=== PATIENT | female | born 1945 | race African-American/Black ===

== ENCOUNTER 2020-02-13 11:54 | Emergency (ER) | payer MEDICARE ==
[~2020-02-13] VITALS: Ht 165.1 cm; Wt 52.0 kg
[~2020-02-13 11:54] MED LIST: CIPR500T94 PO; HYDR-3164 PO; ONDA4TAB7 PO
--- NOTE | 2020-02-13 12:39 | PHYS DOC ---
Past Medical History Past Medical History: Ectopic , Unknown, Other Additional Past Medical Histor: pt is poor historian. only known hx is bursitis Past Surgical History: Other Additional Past Surgical Histo: tubal , hernia, "can't remember" Smoking Status: Never Smoker Alcohol Use: Heavy Drug Use: None General Adult EDM: Chief Complaint: PAIN ON URINATION HPI: HPI: Patient is a 74 year old female who presents with 2 days of burning with urination and that is dull aching that comes and goes. Patient states that yesterday she was vomiting and had diarrhea. Patient's states that she has not vomited today. She states she did have a bowel movement this morning. Denies any pain at this time. Patient states she is having urinary frequency. Patient states she has a history of bursitis, tubal , borderline diabetic when she is , hernia, . Review of Systems: Review of Systems: Constitutional: Denies fever or chills. [] Eyes: Denies change in visual acuity. [] HENT: Denies nasal congestion or sore throat. [] Respiratory: Denies cough or shortness of breath. [] Cardiovascular: Denies chest pain or edema. [] GI: + Lower intermittent abdominal pain, +nausea, +vomiting, + lack of appetite, denies bloody stools. + diarrhea. [] : + dysuria. [] Musculoskeletal: Denies back pain or joint pain. [] Integument: Denies rash. [] Neurologic: Denies headache, focal weakness or sensory changes. [] Endocrine: Denies polyuria or polydipsia. [] Lymphatic: Denies swollen glands. [] Psychiatric: Denies depression or anxiety. [] Heart Score: Risk Factors: Risk Factors: DM, Current or recent (<one month) smoker, HTN, HLP, family history of CAD, obesity. Risk Scores: Score 0 - 3: 2.5% MACE over next 6 weeks - Discharge Home Score 4 - 6: 20.3% MACE over next 6 weeks - Admit for Clinical Observation Score 7 - 10: 72.7% MACE over next 6 weeks - Early Invasive Strategies Allergies: Allergies: Allergies Coded Allergies Type Severity Reaction Last Updated Verified codeine Allergy Unknown 06/26/14 No lidocaine Allergy Unknown 06/26/14 No procaine Allergy Unknown 06/26/14 No Physical Exam: PE: Constitutional: Well developed, well nourished, no acute distress, non-toxic appearance. [] HENT: Normocephalic, atraumatic, bilateral external ears normal, oropharynx moist, no oral exudates, nose normal. [] Eyes: PERRLA, EOMI, conjunctiva normal, no discharge. [] Neck: Normal range of motion, no tenderness, supple, no stridor. [] Cardiovascular:Heart rate regular rhythm, no murmur [] Lungs & Thorax: Bilateral breath sounds clear to auscultation [] Abdomen: Bowel sounds normal, soft, no tenderness, no masses, no pulsatile masses. [] Skin: Warm, dry, no erythema, no rash. [] Back: No tenderness, no CVA tenderness. [] Extremities: No tenderness, no cyanosis, no clubbing, ROM intact, no edema. [] Neurologic: Alert and oriented X 3, normal motor function, normal sensory function, no focal deficits noted. [] Psychologic: Affect normal, judgement normal, mood normal. Normal physical exam [] EKG: EK AND READ BY DR JOHNSTON SINUS RHYTHM AND NO STEMI Radiology/Procedures: Radiology/Procedures: [] Course & Med Decision Making: Course & Med Decision Making Pertinent Labs and Imaging studies reviewed. (See chart for details) See HPI. Ambulatory with a steady gait. Speaks in full complete sentences. Skin pink warm dry. Vital signs within normal limits. Abdomen is soft and nontender. No CVA tenderness. Patient's urinalysis does not show infection if she is having symptoms. Patient is refusing CT scan imaging. I offered her low-dose ketamine to help relax her and she is refusing all of it. She states she does not do well with medication she does not want the medication. I explained to the patient that something could be going on that I cannot properly diagnose such as a medical emergency and this leaves the possibility for disability or . She states her understanding of this and still refuses. I have ordered a acute abdominal series instead. 1600: Nurse tells me that the patient signed out AMA and stated that she wanted no further testing. She stated it was " too cold in here and she wants to go home". Patient was offered a blanket but patient refused and states she just wants to go home. Blood work was unremarkable. Urinalysis showed slight dehydration but she was given a liter of normal saline in the ED. Urinalysis did not show infection. Patient did state upon arrival that she was able to keep food and fluid down today before coming. Patient has not vomited here today. Patient is stable and steady on her feet. She is alert and oriented X4. [] Dragon Disclaimer: Dragon Disclaimer: This electronic medical record was generated, in whole or in part, using a voice recognition dictation system. Departure Departure Impression: Primary Impression: Left against medical advice Additional Impressions: Urinary symptom or sign Vomiting and diarrhea Disposition: 07 AMA/ELOPED/LWBS Condition: STABLE Referrals: NON,STAFF (PCP) KENZIE CONNER APRN Feb 13, 2020 12:39
[2020-02-13] MEDS ORDERED: IV NORMAL SALINE 1000ML BAG 1,000 ML IV ONE (12:45)
[2020-02-13 13:13] LABS: BASO % 1 % (0-3); EOS % 1 % (0-3); HEMATOCRIT 34.4 % (36.0-47.0); LYMPH # 1.1 x10^3/uL (1.0-4.8); LYMPH % 29 % (24-48); MEAN CORPUSCULAR HEMOGLOBIN 36 pg (25-35); MEAN CORPUSCULAR HGB CONC 35 g/dL (31-37); MEAN CORPUSCULAR VOLUME 103 fL (79-100); MONO # 0.3 x10^3/uL (0.0-1.1); MONO % 9 % (0-9); NEUT # 2.1 x10^3/uL (1.8-7.7); NEUT % 59 % (31-73); PLATELET COUNT 169 x10^3/uL (140-400); RED BLOOD COUNT 3.35 x10^6/uL (3.50-5.40); RED CELL DISTRIBUTION WIDTH 14.5 % (11.5-14.5); WHITE BLOOD COUNT 3.6 x10^3/uL (4.0-11.0)
[2020-02-13 13:39] LABS: % EOS 1 % (0-5); % LYMPHS 30 % (24-48); % METAS 1 % (0-0); % MONOS 9 % (0-10); % SEGS 59 % (35-66)
[2020-02-13 13:40] LABS: PLT ESTIMATE ADEQUATE (ADEQUATE)
[2020-02-13 14:12] LABS: CALCIUM 8.4 mg/dL (8.5-10.1); CREATININE 0.6 mg/dL (0.6-1.0); GFR 118.2; POTASSIUM 3.9 mmol/L (3.5-5.1)
[2020-02-13 14:18] LABS: ALBUMIN 3.4 g/dL (3.4-5.0); ALBUMIN/GLOBULIN RATIO 1.1 (1.0-1.7); TOTAL BILIRUBIN 3.3 mg/dL (0.2-1.0); TOTAL PROTEIN 6.6 g/dL (6.4-8.2)
[2020-02-13 14:29] LABS: BILIRUBIN,URINE NEGATIVE (NEG); CLARITY,URINE CLEAR; COLOR,URINE YELLOW; NITRITE,URINE NEGATIVE (NEG); PH,URINE 7.5 (<5.0-8.0); PROTEIN,URINE NEGATIVE (NEG-TRACE)
[2020-02-13 14:33] LABS: BACTERIA,URINE 0 /HPF (0-FEW); RBC,URINE RARE /HPF (0-2); WBC,URINE 0 /HPF (0-4)
[2020-02-13] MEDS ORDERED: CONTRAST GIVEN. MC PRN (15:00)
[2020-02-13] MEDS ORDERED: IOHEXOL 300 MG/ML 100ML VIAL. IV ONE (15:00)
[2020-02-13] MEDS ORDERED: KETAMINE HCL IN NACL, ISO-OSM 50 MG/5 ML SYRINGE IV ONE (15:15)
[2020-02-13 15:30] VITALS: BP 187/94
--- NOTE | 2020-02-15 07:38 | EKG ---
[facility] [address] [place] [address] Test Date: 2020-02-13 Test Time: 12:48:20 Pat Name: PORSHA SUN Department: Room: Gender: F Molding Technician: : 1945 Requested By: KENZIE CONNER Order Number: [id number] Reading MD: Ciro New Measurements Intervals [place] Rate: 78 P: 64 MN: 154 QRS: 29 QRSD: 92 T: 54 QT: 400 QTc: 460 Interpretive Statements SINUS RHYTHM Electronically Signed On 02-16-2020 10:48:18 REGISTERED DENTAL ASSISTANT by Ciro New
== END 2020-02-13 16:00 | disposition left against medical advice (07) ==
LOC: ER 11:54
DX: R11.2 Nausea with vomiting, unspecified (principal); R19.7 Diarrhea, unspecified; R30.9 Painful micturition, unspecified; E86.0 Dehydration; F10.10 Alcohol abuse, uncomplicated; Z98.890 Other specified postprocedural states; Z88.5 Allergy status to narcotic agent; Z88.8 Allergy status to other drugs, medicaments and biological substances
CPT/HCPCS: 36415; 80053; 81001; 83690; 84484; 85007; 85025; 93005; 96360; 99284; J7030

== ENCOUNTER 2020-06-17 11:05 | Emergency (ER) | payer MEDICARE, OTHER ==
[~2020-06-17] VITALS: Ht 162.6 cm; Wt 52.0 kg
[2020-06-17 11:05] VITALS: BP 154/44
[2020-06-17 11:52] LABS: BASO % 1 % (0-3); EOS % 1 % (0-3); HEMATOCRIT 31.8 % (36.0-47.0); HEMOGLOBIN 10.5 g/dL (12.0-15.5); LYMPH # 1.5 x10^3/uL (1.0-4.8); LYMPH % 43 % (24-48); MEAN CORPUSCULAR HEMOGLOBIN 35 pg (25-35); MEAN CORPUSCULAR HGB CONC 33 g/dL (31-37); MEAN CORPUSCULAR VOLUME 105 fL (79-100); MONO # 0.3 x10^3/uL (0.0-1.1); MONO % 9 % (0-9); NEUT # 1.6 x10^3/uL (1.8-7.7); NEUT % 47 % (31-73); PLATELET COUNT 142 x10^3/uL (140-400); RED BLOOD COUNT 3.03 x10^6/uL (3.50-5.40); RED CELL DISTRIBUTION WIDTH 14.4 % (11.5-14.5); WHITE BLOOD COUNT 3.5 x10^3/uL (4.0-11.0)
[2020-06-17 12:02] LABS: CALCIUM 8.1 mg/dL (8.5-10.1); CREATININE 0.5 mg/dL (0.6-1.0); GFR 145.5; POTASSIUM 3.5 mmol/L (3.5-5.1)
[2020-06-17 12:06] LABS: ALBUMIN/GLOBULIN RATIO 0.9 (1.0-1.7); MAGNESIUM 1.7 mg/dL (1.8-2.4); TOTAL BILIRUBIN 0.5 mg/dL (0.2-1.0); TOTAL PROTEIN 6.3 g/dL (6.4-8.2)
--- NOTE | 2020-06-17 12:12 | EKG ---
[facility] [address] [place] [address] Test Date: 2020-06-17 Test Time: 11:30:56 Pat Name: PORSHA SUN Department: Room: Gender: F Sanitation Laborer: : 1945 Requested By: TRESSA BOWDEN Order Number: [id number] Reading MD: Measurements Intervals [place] Rate: 68 P: 68 VA: 172 QRS: 31 QRSD: 84 T: 40 QT: 396 QTc: 426 Interpretive Statements SINUS RHYTHM R-S TRANSITION ZONE IN V LEADS DISPLACED TO THE RIGHT INCOMPLETE RIGHT BUNDLE BRANCH BLOCK OTHERWISE NORMAL ECG RI6.02 No previous ECG available for comparison
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
== END 2020-06-17 12:28 | disposition left against medical advice (07) ==
LOC: ER 11:05
DX: S00.83XA Contusion of other part of head, initial encounter (principal); M54.2 Cervicalgia; R47.81 Slurred speech; I45.10 Unspecified right bundle-branch block; R07.89 Other chest pain; F10.20 Alcohol dependence, uncomplicated; Y90.9 Presence of alcohol in blood, level not specified; Z88.4 Allergy status to anesthetic agent; Z88.5 Allergy status to narcotic agent; V49.49XA Driver injured in collision with other motor vehicles in traffic accident, initial encounter; Y92.481 Parking lot as the place of occurrence of the external cause; Y93.89 Activity, other specified; Y99.8 Other external cause status
CPT/HCPCS: 36415; 80053; 83735; 84484; 85025; 93005; 99284; G0480

== ENCOUNTER 2021-02-12 04:24 | Emergency (ER) | payer OTHER ==
[~2021-02-12] VITALS: Ht 162.6 cm; Wt 54.5 kg
[2021-02-12] MEDS ORDERED: IV NORMAL SALINE 1000ML BAG 1,000 ML IV ONE (05:00)
--- NOTE | 2021-02-12 05:14 | PHYS DOC ---
Past Medical History Past Medical History: Ectopic , Unknown, Other Additional Past Medical Histor: pt is poor historian. only known hx is bursitis (ABIELCESAR Benitez ) Past Surgical History: Other Additional Past Surgical Histo: hernia repair (ABIELCESAR Benitez ) Smoking Status: Never Smoker Alcohol Use: Rarely Drug Use: None (ABIELCESAR Benitez DO) General Adult EDM: Chief Complaint: NAUSEA/VOMITING/DIARRHEA HPI: HPI: Patient is a 75 year old female presents with the chief complaint of nausea vomiting diarrhea x 1 days. Associated symptoms include runny nose cough sore throat abdominal cramping and dysuria. Patient denies shortness of breath. She is not vaccinated. (ABIELCESAR Benitez DO) Review of Systems: Review of Systems: Review of systems: Constitutional symptoms- No fever, no chills. Eyes- No Discharge, No Visual Loss Respiratory symptoms- No shortness of breath, No wheezing, No Dyspnea on Exertion positive cough Cardiovascular Systems; No chest pain, No Palpitations, No syncope Gastrointestinal symptoms: positive abdominal pain, Positive nausea, Positive vomiting Positive diarrhea. Genitourinary symptoms: Positive dysuria. Musculoskeletal symptoms: No back pain No extremity pain. NEUROLOGICAL Symptoms: No headache, no generalized weakness; No focal Weakness Skin: No rash. (ABIELCESAR Benitez DO) Heart Score: C/O Chest Pain: N/A Risk Factors: Risk Factors: DM, Current or recent (<one month) smoker, HTN, HLP, family history of CAD, obesity. Risk Scores: Score 0 - 3: 2.5% MACE over next 6 weeks - Discharge Home Score 4 - 6: 20.3% MACE over next 6 weeks - Admit for Clinical Observation Score 7 - 10: 72.7% MACE over next 6 weeks - Early Invasive Strategies (ABIELCESAR Benitez ) Current Medications: Current Medications Medications (Trade) Dose Ordered Sig/Mathew Start Time Stop Time Status Last Admin Dose Admin Sodium Chloride 1,000 ml @ 1,000 mls/hr 1X ONCE 02/12/21 05:00 02/12/21 05:59 (ABIELCESAR Benitez ) Allergies: Allergies: Allergies Coded Allergies Type Severity Reaction Last Updated Verified codeine Allergy Unknown 06/26/14 No lidocaine Allergy Unknown 06/26/14 No procaine Allergy Unknown 06/26/14 No (ABIELCESAR Eli VAUGHN) Physical Exam: PE: General: alert, no acute distress. Skin: warm, dry and intact, no erythema, no rash. HENT: bilateral external ears normal, oropharynx moist, nose normal. Head:: Normocephalic, atraumatic. Neck: Trachea midline. Eyes: EOMI, Normal conjunctiva, No drainage CARDIOVASCULAR: Regular rate and rhythm RESPIRATORY: No respiratory distress Back: Full range of motion. MUSCULOSKELETAL: Full range of motion of bilateral upper and lower extremities. GASTROINTESTINAL: Abdomen soft without rebound or guarding. NEUROLOGICAL: Alert and noted to person, place and time. No neurological deficits observed Psychiatric: Cooperative. Normal judgment (CESAR RAJAN DO) PE: Constitutional: Elderly, well nourished, no acute distress, non-toxic appearance HENT: Normocephalic, atraumatic Eyes: Conjunctiva normal, no discharge Neck: Normal range of motion, supple Lungs & Thorax: No respiratory distress, equal chest rise and fall Abdomen: Soft, no tenderness, no guarding/rebound tenderness/distention Skin: Warm, dry, no erythema, no rash Back: No tenderness, no CVA tenderness Extremities: No tenderness, ROM intact, no edema Neurologic: Alert and oriented X 3, no focal deficits noted Psychologic: Affect normal, judgment normal (LEXIE IBARRA DO) Current Patient Data: Vital Signs: Vital Signs Date Time Temp Pulse Resp B/P (MAP) Pulse Ox O2 Delivery O2 Flow Rate FiO2 02/12/21 04:41 99.1 85 16 187/105 (132) 99 Room Air 99.1 (CESAR RAJAN I ) EKG: EKG: [] (CESAR RAJAN I ) Radiology/Procedures: Radiology/Procedures: [] (ABIELCESAR I ) Radiology/Procedures: PROCEDURE: CT ABD PELV W/ IV CONTRST ONLY Exam: CT abdomen/pelvis with intravenous contrast Indication: Abdominal pain, nausea vomiting diarrhea Comparison: None Technique: Helical CT imaging performed of the abdomen and pelvis after the intravenous administration of 75 mL Omnipaque 300 contrast. Sagittal and coronal reformats were obtained. One or more of the following individualized dose reduction techniques were utilized for this examination: 1. Automated exposure control 2. Adjustment of the mA and/or kV according to patient size 3. Use of iterative reconstruction technique. Findings: Lower chest: Lung bases are clear. The heart is normal in size. Liver: There is a 2 cm probable cyst in the left hepatic lobe. Mild hepatic steatosis. Gallbladder/Biliary Tree: Cholelithiasis. Bile ducts are normal. Pancreas: Normal. Spleen: Normal. Adrenal Glands: Normal. Kidneys/Ureters/Bladder: Kidneys are normal in size and enhance symmetrically. There is a 2 cm cyst in the right kidney. Cyst in the left kidney measuring up to 1 cm. No hydronephrosis. Ureters are unremarkable. Bladder is normal. Reproductive Organs: Uterus is anteverted. There is a 4.4 x 3.5 cm calcified mass in the right adnexa. Stomach, small bowel, and colon: Stomach is normal. There is no small bowel obstruction. The appendix is normal. Mild sigmoid diverticulosis. Vasculature: No aortic aneurysm. Mild calcified aortoiliac atherosclerosis. Lymph Nodes: There is no lymphadenopathy. Peritoneum and retroperitoneum: No free fluid or free air. Bones: No acute osseous abnormality. 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 Mild degenerative disc disease in the lumbar spine. Impression: 1. Cholelithiasis. 2. Hepatic steatosis. 2 cm hepatic cyst. 3. 4.4 cm calcified mass in the right adnexa. This could be a exophytic fibroid or calcified ovarian mass. Ultrasound could be obtained to further evaluate. 4. Mild sigmoid diverticulosis. 5. Bilateral renal cysts. Electronically signed by: Linh Herrera MD (02/12/2021 7:05 AM) [facility] (LEXIE IBARRA DO) Course & Med Decision Making: Course & Med Decision Making Pertinent Labs and Imaging studies reviewed. (See chart for details) [] Patient was evaluated for chief complaint. Work-up consisted of laboratory analysis radiologic imaging. Treatment included IV fluids and Zofran. Lab and radiologic imaging pending at shift change. Patient signed out to Dr. Ibarra. Disposition work-up and reevaluation. (CESAR RAJAN DO) Course & Med Decision Making 0600- Sign out received from Dr. Rajan for patient with report of N/V/D concerning for possible viral illness. Laboratory and CT imaging pending at time of sign out. Symptomatic treatment provided including IVF hydration. Rapid COVID and Influenza testing negative. Other labs unremarkable. CT imaging without acute process. Notation of calcified adenexal mass noted. A copy of CT imaging given to patient to provided to her PCP for further evaluation. Patient seen and evaluated by myself. Patient reports interval improvement of symptoms, but did report some headache. Tylenol provided. Patient also requests additional nausea medication to be provided in ED to prevent further nausea and vomiting until she can roll picker her prescription for Zofran ODT. Patient does have some elevated blood pressure. Patient reports "white coat" syndrome. Patient advised to therefore follow up with her PCP regarding further evaluation and possible treatment. Patient stable for discharge with outpatient follow-up with PCP. Discussed findings and plan with patient, who acknowledges understanding and agreement. (LEXIE IBARRA DO) [place] Disclaimer: Dragon Disclaimer: This electronic medical record was generated, in whole or in part, using a voice recognition dictation system. (CESAR RAJAN DO) Departure Departure Impression: Primary Impression: Abdominal pain Additional Impressions: Vomiting and diarrhea Abnormal finding on radiology exam Suspected 2019 novel coronavirus infection Disposition: HOME / SELF CARE / HOMELESS Condition: STABLE Referrals: MABLE HEMPHILL MD (PCP) Patient Instructions: Abdominal Pain (Nonspecific), Diarrhea, [id number], Diet for Diarrhea, Adult, Incidental Abnormal Radiological Finding, Nausea and Vomiting, [id number] Additional Instructions: Please provided copy of CT results to your family physician for further evaluation. You have been tested for or diagnosed with COVID-19. It is an infection caused by a new type of coronavirus. COVID-19 will cause cold-like or mild flu symptoms in most. It can cause more severe symptoms like problems breathing in some. There is no treatment for COVID-19. The body will clear the infection over time. Self-care will help to ease discomfort. Steps to Take: Self-Care Rest as needed. Healthy habits may help you feel better. Steps include: Choose healthy foods including fruits and vegetables. Drink water throughout the day. Get plenty of sleep each night. If you smoke, try to quit. It may ease breathing. Avoid alcohol. Keep Others Healthy The virus can spread to others. Droplets are released every time you sneeze or cough. The droplets can get into the mouth, nose, or eyes of people near you and lead to infection. To lower the chances of spreading COVID-19 to others: Stay at home until your doctor has said it is safe to leave. If you tested positive this will mean staying isolated until both of the following are true: At least 7 days have passed since the start of illness. You are free of fever for at least 72 hours without the use of medicine. During this time: - Avoid public areas, events, or transportation. Do not return to work or school until your doctor has said it is safe to do so. - Call ahead if you need to go to a medical center. Let them know you may have COVID-19. It will help them guide you where to go. They may also ask you to wear a facemask when you come to the office. - If you call for emergency medical services, let them know you may have COVID- 19. While at home: - Try to avoid close contact with others. Stay about 6 feet away. - If possible, spend most of your time in a separate room from others. - Use a face mask if you will be in close contact with others such as sharing a room or vehicle. - Have someone wipe down common surfaces in the home. Use household gaming manager every day on areas like doorknobs, counters, or sinks. - Cough or sneeze into a tissue. Throw the tissue away right after use. If a tissue is not available, cough or sneeze into your elbow. - Wash your hands often. Wash them after sneezing or coughing. Use soap and water and wash for at least 20 seconds. Alcohol based hand airplane cleaner can be used if soap and water is not available. - Do not prepare food for others. Avoid sharing personal items like forks, spoons, or toothbrushes. - Avoid close contact with pets while you are sick. There is no evidence of the virus passing to pets. This is a safety step until more is known about this virus. Isolation can be frustrating. Social interaction can help. Keep in touch with friends and family through phone and tech options. You can still interact with others in your home, just keep a safe distance of about 6 feet. Follow-up: Your doctors office will check in with you to see if there are any changes in your health. You may be asked to keep track of symptoms to share with them. They will also let you know when you are clear to be in public again. Problems to Look Out For: Contact your doctor if your recovery is not going as you expect. Get emergency care if you have problems such as: - Trouble breathing - Nonstop chest pain or pressure - Changes in awareness, confusion, or problems waking - Lips or face have bluish color - Worsening of symptoms If you think you have an emergency, call for emergency medical services right away. As taken from [facility] Ondansetron (ONDANSETRON ODT) 4 Mg Tab.rapdis 1 TAB PO PRN Q6-8HRS PRN for NAUSEA, #16 TAB Prov: LEXIE IBARRA DO 02/12/21 CESAR RAJAN I DO Feb 12, 2021 05:14 LEXIE IBARRA DO Feb 12, 2021 07:33
[2021-02-12 05:30] LABS: BILIRUBIN,URINE SMALL (NEG); CLARITY,URINE CLEAR; COLOR,URINE AMBER; NITRITE,URINE NEGATIVE (NEG); PH,URINE 6.5 (<5.0-8.0); PROTEIN,URINE NEGATIVE (NEG-TRACE)
[2021-02-12] MEDS ORDERED: ONDANSETRON PF 4 MG/2 ML VIAL. ONE (05:33)
[2021-02-12 05:44] LABS: BACTERIA,URINE 0 /HPF (0-FEW); RBC,URINE 0 /HPF (0-2)
[2021-02-12 05:45] LABS: AMORPHOUS SEDIMENT,UR PRESENT /HPF
[2021-02-12] MEDS ORDERED: ONDANSETRON PF 4 MG/2 ML VIAL. IVP ONE ×2 (05:45→07:30)
[2021-02-12 05:54] LABS: CALCIUM 8.8 mg/dL (8.5-10.1); CREATININE 0.6 mg/dL (0.6-1.0); GFR 117.9; POTASSIUM 3.5 mmol/L (3.5-5.1)
[2021-02-12 05:59] LABS: BASO % 1 % (0-3); EOS % 0 % (0-3); HEMATOCRIT 38.6 % (36.0-47.0); HEMOGLOBIN 12.8 g/dL (12.0-15.5); LYMPH # 0.7 x10^3/uL (1.0-4.8); LYMPH % 18 % (24-48); MEAN CORPUSCULAR HEMOGLOBIN 34 pg (25-35); MEAN CORPUSCULAR HGB CONC 33 g/dL (31-37); MEAN CORPUSCULAR VOLUME 104 fL (79-100); MONO # 0.4 x10^3/uL (0.0-1.1); MONO % 9 % (0-9); NEUT # 2.9 x10^3/uL (1.8-7.7); NEUT % 71 % (31-73); PLATELET COUNT 128 x10^3/uL (140-400); RED BLOOD COUNT 3.72 x10^6/uL (3.50-5.40); RED CELL DISTRIBUTION WIDTH 13.3 % (11.5-14.5)
[2021-02-12 06:00] LABS: ALBUMIN 3.7 g/dL (3.4-5.0); ALBUMIN/GLOBULIN RATIO 0.9 (1.0-1.7); TOTAL BILIRUBIN 2.8 mg/dL (0.2-1.0); TOTAL PROTEIN 7.7 g/dL (6.4-8.2)
[2021-02-12] MEDS ORDERED: CONTRAST GIVEN. MC PRN (06:15)
[2021-02-12] MEDS ORDERED: IOHEXOL 300 MG/ML 100ML VIAL. IV ONE (06:15)
[2021-02-12 06:19] LABS: INFLUENZA A PATIENT NEGATIVE (NEGATIVE); INFLUENZA B PATIENT NEGATIVE (NEGATIVE)
--- NOTE | 2021-02-12 07:07 | RAD ---
Exam: CT abdomen/pelvis with intravenous contrast Indication: Abdominal pain, nausea vomiting diarrhea Comparison: None Technique: Helical CT imaging performed of the abdomen and pelvis after the intravenous administratio n of 75 mL Omnipaque 300 contrast. Sagittal and coronal reformats were obtained. One or more of the following individualized dose reduction techniques were utilized for this examinat ion: 1. Automated exposure control 2. Adjustment of the mA and/or kV according to patient size 3. Use of iterative reconstruction technique. Findings: Lower chest: Lung bases are clear. The heart is normal in size. Liver: There is a 2 cm probable cyst in the left hepatic lobe. Mild hepatic steatosis. Gallbladder/Biliary Tree: Cholelithiasis. Bile ducts are normal. Pancreas: Normal. Spleen: Normal. Adrenal Glands: Normal. Kidneys/Ureters/Bladder: Kidneys are normal in size and enhance symmetrically. There is a 2 cm cyst i n the right kidney. Cyst in the left kidney measuring up to 1 cm. No hydronephrosis. Ureters are unre markable. Bladder is normal. Reproductive Organs: Uterus is anteverted. There is a 4.4 x 3.5 cm calcified mass in the right adnexa . Stomach, small bowel, and colon: Stomach is normal. There is no small bowel obstruction. The appendix is normal. Mild sigmoid diverticulosis. Vasculature: No aortic aneurysm. Mild calcified aortoiliac atherosclerosis. Lymph Nodes: There is no lymphadenopathy. Peritoneum and retroperitoneum: No free fluid or free air. Bones: No acute osseous abnormality. 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 Mild degen erative disc disease in the lumbar spine. Impression: 1. Cholelithiasis. 2. Hepatic steatosis. 2 cm hepatic cyst. 3. 4.4 cm calcified mass in the right adnexa. This could be a exophytic fibroid or calcified ovarian mass. Ultrasound could be obtained to further evaluate. 4. Mild sigmoid diverticulosis. 5. Bilateral renal cysts. Electronically signed by: Linh Herrera MD (02/12/2021 7:05 AM) [facility]
[2021-02-12] MEDS ORDERED: ACETAMINOPHEN 500 MG TABLET PO ONE (07:30)
[2021-02-12] MEDS ORDERED: ONDA4TAB12 PO (07:32)
[2021-02-12 07:51] VITALS: BP 165/90
--- NOTE | 2021-02-13 11:16 | NUR ---
IP: Informed pt of negative covid test. Pt verbalized understanding.
== END 2021-02-12 07:55 | disposition home or self-care (01) ==
LOC: ER 04:24
DX: R11.2 Nausea with vomiting, unspecified (principal); Z20.822 Contact with and (suspected) exposure to COVID-19; R19.7 Diarrhea, unspecified; Z88.4 Allergy status to anesthetic agent; Z88.5 Allergy status to narcotic agent; R93.5 Abnormal findings on diagnostic imaging of other abdominal regions, including retroperitoneum
CPT/HCPCS: 36415; 74177; 80053; 81001; 84484; 85025; 87086; 87426; 87804; 96361; 96374; 96376; 99285; J2405; J7030; Q9967; U0003